=== PATIENT | male | born 1970 | race Caucasian/White ===

== ENCOUNTER → 2018-05-04 | Outpatient (CLI) | payer OTHER ==
[~2018-05-04] MED LIST: INDOMETHACIN 5050 MG PO; LAMICTAL XR100 MG; PERCOCET 5-3251 EACH PO; PREDNISONE50 MG PO; ROBAXIN 750 MG750 MG PO; SIMVASTATIN40 MG; TRAMADOL HCL50 MG PO; VIAGRA100 MG; WELLBUTRIN 100100 M1
== END ==
LOC: M.MRI 17:14
DX: S83.241A Other tear of medial meniscus, current injury, right knee, initial encounter (principal); S83.231A Complex tear of medial meniscus, current injury, right knee, initial encounter; M25.461 Effusion, right knee; X58.XXXA Exposure to other specified factors, initial encounter; Y93.89 Activity, other specified; Y92.89 Other specified places as the place of occurrence of the external cause; Y99.8 Other external cause status

== ENCOUNTER → 2018-07-14 | Outpatient (CLI) | payer OTHER | LOC: M.MRI 07-09 17:30 | DX: S83.282A Other tear of lateral meniscus, current injury, left knee, initial encounter (principal); M25.462 Effusion, left knee; M71.22 Synovial cyst of popliteal space [Baker], left knee; X58.XXXA Exposure to other specified factors, initial encounter; Y93.89 Activity, other specified; Y92.89 Other specified places as the place of occurrence of the external cause; Y99.8 Other external cause status ==

== ENCOUNTER 2019-09-10 11:23 | Emergency (ER) | payer OTHER ==
[~2019-09-10] VITALS: Ht 185.4 cm; Wt 99.8 kg
[2019-09-10 12:11] LABS: ABSOLUTE BASOPHILS 0.1 thou/uL (0.0-0.2); ABSOLUTE EOSINOPHILS 0.1 thou/uL (0.0-0.7); ABSOLUTE LYMPHOCYTES 1.4 thou/uL (0.8-5.3); ABSOLUTE MONOCYTES 0.5 thou/uL (0.0-1.2); ABSOLUTE NEUTROPHILS 4.6 thou/uL (1.6-8.1); BASOPHILS 0.9 %; EOSINOPHILS 1.3 %; HEMATOCRIT 45.6 % (42.0-52.0); HEMOGLOBIN 16.1 gm/dL (14.0-18.0); LYMPHOCYTES 21.2 %; MCH 34.5 pg (26.0-34.0); MCHC 35.4 g/dL (28.0-37.0); MCV 97.4 fL (80.0-100.0); MONOCYTES 7.7 %; MPV 6.7 fl. (7.2-11.1); NUCLEATED RBCS 0 /100WBC; PLATELET COUNT* 200 thou/uL (150-400); POLYS 68.9 %; RBC 4.68 mil/uL (4.50-6.00); RDW-CV 12.4 % (10.5-14.5); WBC 6.7 thou/uL (4.0-11.0)
[2019-09-10 12:15] LABS: CREATININE 1.4 mg/dL (0.6-1.3); POTASSIUM 3.9 mmol/L (3.5-5.1)
[2019-09-10 12:23] LABS: PROTIME 10.2 Seconds (9.20-11.50)
[2019-09-10 12:26] LABS: ALBUMIN 4.1 g/dL (3.4-5.0); TOTAL BILIRUBIN 0.7 mg/dL (<0.1-1.0); TOTAL PROTEIN 7.6 g/dL (6.4-8.2)
[2019-09-10] MEDS ORDERED: OMEPRAZOLE 20 M20 M1 PO (12:52)
[2019-09-10] MEDS ORDERED: LIPITOR40 MG PO (12:53)
[2019-09-10] MEDS ORDERED: LAMOTRIGINE250 MG PO (12:53)
[2019-09-10] MEDS ORDERED: PAXIL 20 MG TAB20 M1 PO (12:54)
[2019-09-10 15:04] VITALS: BP 142/81
--- NOTE | 2019-09-11 14:32 | EKG ---
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
== END 2019-09-10 15:07 | disposition home or self-care (01) ==
LOC: M.ERS 11:23
PROVIDERS: Personal Emergency Response Attendant
DX: I10 Essential (primary) hypertension (principal); R07.89 Other chest pain

== ENCOUNTER → 2019-09-16 | Outpatient (CLI) | payer OTHER ==
[~2019-09-16] MED LIST changes: +LAMOTRIGINE250 MG PO; +LIPITOR40 MG PO; +OMEPRAZOLE 20 M20 M1 PO; +PAXIL 20 MG TAB20 M1 PO
--- NOTE | 2019-09-17 11:17 | CARDNUC ---
[place] [address] CARDIAC NUCLEAR IMAGING REPORT Name: LAURADUY R Room: [facility]#: [id number] Admission: 09/16/19 Attend Phys: Lynda Stein DO Discharge: Date of : 68 Date of Service: 09/17/19 1117 Report #: [id number] THIS REPORT FOR: //name// APPROVED REPORT Study performed: 09/16/2019 12:45:00 Indication: Chest pain, Dyspnea Patient Location: Out-Patient Stress Tech: Cyndy Ayala Stress Nurse: Sho Mcdonald RN Ht: 6 ft 1 in Wt: 221 lbs BSA: 2.24 m2 BMI: 29.15 Medical History Medical History: hyperlipidemia Medications: atorvastatin Allergies: nkda Cardiac Risk Factors: age, hyperlipidemia Previous Cardiac Procedures: none Exercise History: Physically active Resting Data Rest SPECT myocardial perfusion imaging was performed in supine position 30 minutes following the intravenous injection of 11.5 mCi of Tc-99m Sestamibi. Time of rest injection: 13:00 The images were gated to evaluate regional wall motion and calculate left ventricular ejection fraction. Administration Route: IV Administration Site: Right AC Exercise Stress At peak stress, the patient was injected intravenously with 35.3mCi of Tc-99m Sestamibi. Time of stress injection: 14:35 Administration Route: IV Administration Site: Right AC Heart Rate at time of stress injection: 164 bpm. Patient continued to exercise for 1 minute(s). Gated Stress SPECT was performed 30 minutes after stress injection. The images were gated to evaluate regional wall motion and calculate left [place] [address] CARDIAC NUCLEAR IMAGING REPORT Name: DUY SANCHEZ Room: [facility]#: [id number] Admission: 09/16/19 Attend Phys: Lynda Stein DO Discharge: Date of : 68 Date of Service: 09/17/19 1117 Report #: [id number] Prone imaging was performed. Stress Test Details Stress Test: Exercise stress testing was performed using a Dami protocol. HR Max Heart Rate (APMHR): 170 bpm Resting HR: 70 bpm Target HR (85% APMHR): 144 bpm Max HR Achieved: 164 bpm % of APMHR: 96 Recovery HR: 102 bpm HR response to stress: Normal HR response to stress BP Resting BP: 157/102 mmHg Max BP: 207/70 mmHg Recovery BP: 149/83 mmHg BP response to stress: Abnormal hypertensive response to stress. ECG Resting ECG: Sinus Rhythm, normal EKG Stress ECG: Sinus Tachycardia, normal EKG ST Change: None Maximum ST Deviation: 0 mm Arrhythmia: None Recovery ECG: Sinus Rhythm, normal EKG Recovery ST Change: None Recovery ST Deviation: 0 mm Recovery Arrhythmia: VPC Clinical Reason for Termination: Dyspnea Stress Symptoms: Dyspnea Exercise duration: 10 min sec Exercise capacity: 11.78 METs Overall Exercise Capacity for Age: Normal Stress ECG Conclusion ECG: Non-ischemic Clinical: Non-ischemic Normal submaximal stress test. Study Quality Study: Good Artifact: Mild Diaphragmatic artifact Lung Uptake: [place] [address] CARDIAC NUCLEAR IMAGING REPORT Name: DUY SANCHEZ Room: [facility]#: [id number] Admission: 09/16/19 Attend Phys: Lynda Stein DO Discharge: Date of : 68 Date of Service: 09/17/19 1117 Report #: [id number] Study Data At rest, the left ventricular ejection fraction was 67%.. Post stress, the left ventricular ejection was 71%.. SSS: 3 SRS: 10 SDS: -7 TID = 0.93. Perfusion The resting study demonstrated a small mild inferior defect. The post stress images demonstrate a small very mild inferior defect. Prone images were obtained and were normal. There were no defects seen on prone imaging. There therefore no reversible defects seen is no evidence of myocardial ischemia. The inferior wall defect seen at rest and post stress are felt to be due to diaphragmatic attenuation artifact. Images were reviewed using [employer]. Wall Motion Normal left ventricular wall motion.Normal left ventricular size and function with no regional wall motion abnormalities. Nuclear Conclusion ECG Findings: negative for ischemia Clinical Findings: negative for ischemia Nuclear Findings: negative for ischemia Exercise Capacity: normal Left Ventricular Function: normal Risk Study: low The exercise Cardiolite stress test demonstrates no evidence of myocardial ischemia. Overall this is a low risk study. Normal study. No scintigraphic evidence for myocardial ischemia or scar. <Conclusion> ECG: Non-ischemic Clinical: Non-ischemic Normal submaximal stress test. <ELECTRONICALLY SIGNED> By: Juan Daniel Madrid MD, [facility] 09/17/191116 16 16 Juan Daniel Madrid MD, FACC /INF
== END ==
LOC: M.NUC 09-12 09:41
DX: R07.9 Chest pain, unspecified (principal); R06.00 Dyspnea, unspecified; E78.5 Hyperlipidemia, unspecified

== ENCOUNTER → 2020-01-13 | Outpatient (CLI) | payer OTHER | LOC: M.ULTRA 09:32 | DX: N50.811 Right testicular pain (principal); N50.812 Left testicular pain ==

== ENCOUNTER 2020-06-11 13:55 | Emergency (ER) | payer OTHER ==
[~2020-06-11] VITALS: Ht 188 cm; Wt 108.9 kg
[2020-06-11 15:31] LABS: ABSOLUTE BASOPHILS 0.1 thou/uL (0.0-0.2); ABSOLUTE EOSINOPHILS 0.1 thou/uL (0.0-0.7); ABSOLUTE LYMPHOCYTES 1.4 thou/uL (0.8-5.3); ABSOLUTE MONOCYTES 0.6 thou/uL (0.0-1.2); ABSOLUTE NEUTROPHILS 3.9 thou/uL (1.6-8.1); BASOPHILS 0.9 %; EOSINOPHILS 2.3 %; HEMATOCRIT 41.7 % (42.0-52.0); HEMOGLOBIN 14.9 gm/dL (14.0-18.0); LYMPHOCYTES 23.3 %; MCH 35.7 pg (26.0-34.0); MCHC 35.8 g/dL (28.0-37.0); MCV 99.7 fL (80.0-100.0); MONOCYTES 9.2 %; MPV 6.5 fl. (7.2-11.1); NUCLEATED RBCS 0 /100WBC; PLATELET COUNT* 196 thou/uL (150-400); POLYS 64.3 %; RBC 4.18 mil/uL (4.50-6.00); RDW-CV 12.7 % (10.5-14.5); WBC 6.1 thou/uL (4.0-11.0)
[2020-06-11 15:37] LABS: CALCIUM 8.3 mg/dL (8.5-10.1); CREATININE 1.3 mg/dL (0.6-1.3); POTASSIUM 3.9 mmol/L (3.5-5.1)
[2020-06-11 15:41] LABS: ALBUMIN 3.9 g/dL (3.4-5.0); TOTAL BILIRUBIN 0.3 mg/dL (<0.1-1.0); TOTAL PROTEIN 7.2 g/dL (6.4-8.2)
[2020-06-11 15:44] LABS: URINE BILIRUBIN NEGATIVE (Negative); URINE BLOOD NEGATIVE (Negative); URINE CLARITY CLEAR; URINE COLOR YELLOW; URINE GLUCOSE-RANDOM NEGATIVE (Negative); URINE KETONES NEGATIVE (Negative); URINE LEUKOCYTES-REFLEX NEGATIVE (Negative); URINE NITRITE-REFLEX NEGATIVE (Negative); URINE PROTEIN NEGATIVE (Negative)
[2020-06-11] MEDS ORDERED: IBUPROFEN 800800 M1 PO (17:08)
[2020-06-11] MEDS ORDERED: NORCO 5-325 TA1 EAC2 PO (17:08)
[2020-06-11 17:28] VITALS: BP 125/70
== END 2020-06-11 17:28 | disposition home or self-care (01) ==
LOC: M.ERS 13:55
PROVIDERS: Nurse Practitioner Family
DX: K40.20 Bilateral inguinal hernia, without obstruction or gangrene, not specified as recurrent (principal); K42.9 Umbilical hernia without obstruction or gangrene; M62.08 Separation of muscle (nontraumatic), other site; M87.9 Osteonecrosis, unspecified; I10 Essential (primary) hypertension

== ENCOUNTER → 2020-06-21 | Outpatient (CLI) | payer OTHER ==
[~2020-06-21] MED LIST changes: +IBUPROFEN 800800 M1 PO; +NORCO 5-325 TA1 EAC2 PO; +OXYCODONE HCL 55 MG PO; +ZOFRAN4 MG PO
== END ==
LOC: M.LAB 08:32
PROVIDERS: ATTEND Surgery
DX: Z01.818 Encounter for other preprocedural examination (principal); Z11.59 Encounter for screening for other viral diseases; K40.20 Bilateral inguinal hernia, without obstruction or gangrene, not specified as recurrent; K42.9 Umbilical hernia without obstruction or gangrene

== ENCOUNTER → 2020-06-26 | Day surgery (SDC) | payer OTHER ==
--- NOTE | ~2020-06-26 | OP ---
[address] [address] OPERATIVE REPORT Name: DUY SANCHEZ Room: [facility]#: [id number] Admission: 06/26/20 Attend Phys: Steve Son DO Discharge: Date of : 68 Report #: [id number] THIS REPORT FOR: //name// cc: Lynda Stein Maggie M. DO ~ THIS REPORT FOR: //name// CC: Steve Stein DO DATE OF SERVICE: 06/26/2020 REFERRING PHYSICIAN: Lynda Stein DO. PREOPERATIVE DIAGNOSES: Bilateral inguinal hernia and recurrent umbilical hernia. POSTOPERATIVE DIAGNOSES: Bilateral indirect inguinal hernias and recurrent umbilical hernia. PROCEDURE: Da Kristine robotic-assisted laparoscopic bilateral inguinal hernia repair with mesh and open recurrent umbilical hernia repair with mesh. SURGEON: Steve Son DO. CHILDREN'S LIBRARIAN: Adebaoy Gonzalez DO. ANESTHESIA: General endotracheal. ESTIMATED BLOOD LOSS: Less than 20 mL. COMPLICATIONS: None. DESCRIPTION OF PROCEDURE: After obtaining proper consents and discussing risks and complications with the patient as well as reviewing his CT scan, he was taken to the operating room, laid in the supine position, administered general endotracheal anesthetic. He was then prepped and draped in the usual sterile fashion. A timeout was performed. We confirmed the appropriate patient and procedure. Preoperative antibiotics were given. SCDs were in place. We then had anesthesia performed TAP blocks. We then made a small horizontal supraumbilical skin incision through the patient's previous incision for his umbilical hernia repair. This was carried down into the subcutaneous tissue. Once within the subcutaneous tissue, we identified the hernia sac. The hernia sac was completely dissected free and detached from the umbilicus. We then opened the hernia sac and inverted the contents back [place] [address] OPERATIVE REPORT Name: LAURADUY Collins Room: [facility]#: [id number] Admission: 06/26/20 Attend Phys: Steve Son DO Discharge: Date of : 68 Report #: [id number] The defect was fairly large, approximately 2 cm in diameter. We then closed the hernia defect using 0 Prolene sutures in order to be able to place our da Kristine camera port down through the hernia defect. Once this was done, we then began insufflation. Once insufflation was complete, full visual inspection of the anterior abdominal organs was performed. We did place the patient in steep Trendelenburg position in order to visualize the inguinal regions. In that region, there appeared to be small bilateral indirect inguinal hernias. There were no other gross abnormalities identified. We then placed 2 more 8.5 mm da Kristine trocars, one in the right upper quadrant, one in the left upper quadrant. We then docked the da Kristine robot. Once the robot was docked, we inserted monopolar scissors and bipolar fenestrated grasper. I then broke scrub and went on console. Once on console, I identified the ASIS on the right and left sides. I then opened the peritoneum from the median umbilical ligament laterally on both sides starting with the right side. I dissected the preperitoneal space all the way down to the pubic ramus and then approximately 2 cm below. I then continued the dissection laterally along the spermatic cord and dissected a very small indirect inguinal hernia sac off of the cord. I then continued the dissection all the way laterally to the ASIS. I then identified that there was quite a large cord lipoma. This cord lipoma was easily reduced back and then excised using electrocautery. I then turned my attention to the left side where similarly the peritoneum was opened from the median umbilical ligament laterally to the ASIS. I again dissected medially first all the way down below the pubic ramus and then continued my dissection laterally all the way out along the spermatic cord, reducing a small indirect inguinal hernia sac again and then continuing laterally all the way to the ASIS. I then identified again a fairly large cord lipoma, which was completely excised using electrocautery. I then placed a 10 x 15 cm anatomic ProGrip mesh on both sides. It was opened in its entirety and covered the direct, indirect, and femoral spaces very nicely. I then closed the peritoneum using a running 2-0 absorbable V-Loc suture. Once this was completed, I then removed the needles from the abdominal cavity and then placed the 2 cord lipomas into an Endopouch, which was removed through the right upper quadrant incision. I then rescrubbed to the patient's bedside, we undocked the da Kristine robot, removed all the instruments. The umbilical defect was large enough that I felt it would be beneficial to place a 6.4 cm Ventralex mesh, so we opened 2 of the sutures that we had placed to close down the hernia defect. We placed a 6.4 cm Ventralex mesh and it was sutured in place using 0 Prolene suture incorporating the mesh into the fascial closure. We then reattached the umbilicus using a 2-0 Vicryl suture. Skin incisions were all closed using 4-0 Monocryl subcuticular stitch and Dermabond. The patient was then awakened in the operating room and transported to recovery room in stable condition. Sponge, needle and instrument counts were all correct at the end of the procedure. By: 1141 1202Atanner Son DO /nt
--- NOTE | 2020-06-26 17:18 | EKG ---
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
--- NOTE | 2020-07-02 07:38 | PATH ---
[facility] [address] [place] [address] PATHOLOGY RPT PROCEDURE Name: HARIS SANCHEZ Room: [employer].#: [id number] Admission: 06/26/20 Date of : 68 Discharge: Report #: [id number] Path Case #: [id number] [facility] Accession Number: [id number] . 01 Material submitted: . hernia - RIGHT AND LEFT CORD LIPOMAS. Modifiers: bilateral . 01 Clinical history: . DS/ROBOTIC INGUINAL HERNIA . 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 (GABBY:virgen; 06/28/2020) MBR 06/28/2020 1643 Local . 02 Electronically signed: . Collins West MD, Pathologist NPI- [id number] . 01 Gross description: . The specimen is received in formalin, labeled "Haris Christos, left and right cord lipomas". Received are multiple segments of yellow-liu lobulated tissue measuring 7.7 x 6.1 x 2.9 cm in aggregate dimensions. Sectioning reveals bright yellow cut surfaces with no grossly distinct nodules or lesions. The specimen is submitted representatively in cassettes A1 and A2. (CAA; 06/27/2020) QAC/QAC 06/28/2020 1643 Local . 02 Pathologist provided ICD-10: K40.90 . 02 CPT . 926068 Specimen Comment: A courtesy copy of this report has been sent to [phone], [phone] Specimen Comment: [phone] Specimen Comment: Report sent to / DR APARICIO Specimen Comment: Report sent to Performed at: [address], [place] [id number] MD Gary Chen MD Phone: [phone] Performed at: [address] [facility] [address], [place], [place] [id number] MD Collins West MD Phone: [phone]
== END | disposition home or self-care (01) ==
LOC: M.SUR 07:37
PROVIDERS: ATTEND Surgery
DX: K40.20 Bilateral inguinal hernia, without obstruction or gangrene, not specified as recurrent (principal); K42.9 Umbilical hernia without obstruction or gangrene; I10 Essential (primary) hypertension; Z79.899 Other long term (current) drug therapy; Z98.890 Other specified postprocedural states